=== PATIENT | male | born 1985 | race Caucasian/White ===

== ENCOUNTER → 2023-01-05 | Outpatient (CLI) | payer BC, SELFPAY ==
[2023-01-05 16:18] LABS: Glucose 373 mg/dL (74-106)
[2023-01-05 16:55] LABS: Hemoglobin A1c 11.1 % (3.8-5.6)
== END | disposition home or self-care (01) ==
LOC: MTLAB 13:07
PROVIDERS: Referring Provider Ophthalmology Retina Specialist; Visit Provider Ophthalmology Retina Specialist
DX: H35.63 Retinal hemorrhage, bilateral (principal)
CPT/HCPCS: 36415; 82947; 83036